=== PATIENT | male | born 1990 | race Caucasian/White ===

== ENCOUNTER 2018-12-01 22:11 | Emergency (ER) | payer SELFPAY ==
[2018-12-01 22:20] VITALS: BMI 23.3
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
[2018-12-02] MEDS ORDERED: morphine CARPU-JECT 4 MG/1 ML DISP.SYRIN IVPUSH ONE (00:06)
[2018-12-02] MEDS ORDERED: SODIUM CHLORIDE 0.9% 500 ML INFUS.BAG IV ONE (00:07)
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
[2018-12-02] MEDS ORDERED: PIPERACILLIN/TAZOB 4.5 GM 4.5 GM in DEXTROSE 5%-WATER 100 ML IVPB ONE (00:17)
[2018-12-02] MEDS ORDERED: PIPERACILLIN/TAZOB 4.5 GM 4.5 GM/100 ML BAG IVPB ONE (00:37)
[2018-12-02] MEDS ORDERED: morphine SULFATE 4 MG/ML VIAL ONE (00:37)
[2018-12-02 01:16] LABS: BASO % 0.5 % (0-2.0); EOS % 1.2 % (0-4.5); HEMATOCRIT 40.5 % (35.4-49); HEMOGLOBIN 13.7 GM/dL (11.7-16.9); LYMPH % 18.9 % (8-40); MCH 32.8 pg (25.7-33.7); MCHC 33.9 g/dl (32.0-35.9); MEAN CELL VOLUME 96.8 fl (80-96); MEAN PLT VOLUME 8.4 fl (7.5-11.1); MONO % 11.6 % (3.8-10.2); NEUT % 67.8 % (42.8-82.8); PLATELET COUNT 223 K/MM3 (134-434); RBC 4.18 M/mm3 (4.00-5.60); RDW 12.8 % (11.9-15.9); WHITE BLOOD COUNT 7.6 K/mm3 (4.0-10.0)
[2018-12-02 01:30] LABS: INR 1.04 (0.83-1.09); PROTHROMBIN TIME (PATIENT) 12.3 SEC (9.7-13.0)
[2018-12-02 01:52] LABS: ALBUMIN 3.8 g/dl (3.4-5.0); BILIRUBIN,TOTAL 0.5 mg/dL (0.2-1); BLOOD UREA NITROGEN 9.6 mg/dL (7-18); CALCIUM 8.7 mg/dL (8.5-10.1); CREATININE 0.7 mg/dL (0.55-1.3); POTASSIUM 4.4 mmol/L (3.5-5.1); TOT PROT 6.7 g/dl (6.4-8.2)
[2018-12-02 03:55] VITALS: BP 116/77; PULSE 60; TEMP 99
== END 2018-12-02 03:20 | disposition short-term general hospital (02) ==
LOC: JER 22:11
PROC: 3E03329 Introduction of Other Anti-infective into Peripheral Vein, Percutaneous Approach (ICD-10-PCS; principal; 2018-12-01)
PROC: 3E033NZ Introduction of Analgesics, Hypnotics, Sedatives into Peripheral Vein, Percutaneous Approach (ICD-10-PCS; 2018-12-01)
DX: S59.8 Other specified injuries of elbow and forearm (principal); T79.A11D Traumatic compartment syndrome of right upper extremity, subsequent encounter; X99.1XXD Assault by knife, subsequent encounter
CPT/HCPCS: 36415; 73070-TC-RT-FY; 73090-TC-RT-FY; 80053; 82550; 82553; 85025; 85610; 86850; 86900; 86901; 99285-25

== ENCOUNTER 2020-08-01 23:28 | Emergency (ER) | payer OTHER ==
[2020-08-01 23:47] VITALS: TEMP 98.1; BMI 24.1
[2020-08-02] MEDS ORDERED: ACETAMINOPHEN 500 MG TABLET (FP) PO ONE (00:27)
[2020-08-02] MEDS ORDERED: ACETAMINOPHEN 325 MG TABLET (FP) ONE (00:36)
[2020-08-02 04:07] VITALS: BP 126/78; PULSE 73
== END 2020-08-02 04:07 | disposition home or self-care (01) ==
LOC: JER 23:28
DX: M25.561 Pain in right knee (principal)
CPT/HCPCS: 73562-TC-RT-FY; 73590-TC-RT-FY; 93971-TC; 99285-25

== ENCOUNTER 2020-08-29 23:26 | Emergency (ER) | payer OTHER ==
[2020-08-29 23:34] VITALS: BP 132/81; PULSE 78; TEMP 98.9; BMI 23.3
== END 2020-08-30 01:47 | disposition home or self-care (01) ==
LOC: JER 23:26
DX: S92.424B Nondisplaced fracture of distal phalanx of right great toe, initial encounter for open fracture (principal)
CPT/HCPCS: 70450-TC; 72125-TC; 73610-TC-RT-FY; 73630-TC-RT-FY; 99285-25